=== PATIENT | female | born 1960 | race Caucasian/White ===

== ENCOUNTER 2018-12-19 07:10 | Day surgery (SDC) | payer OTHER ==
[2018-12-17 17:30] VITALS: BMI 25.7
[2018-12-19] MEDS ORDERED: ceFAZolin SODIUM 1 GM VIAL ONE ×2 (07:31→09:49)
[2018-12-19] MEDS ORDERED: PHENAZOPYRIDINE HCL 100 MG TABLET (FP) ONE (07:31)
[2018-12-19] MEDS: PHENAZOPYRIDINE HCL 100 MG TABLET (FP) PO ONE ×2 (07:45→19:15)
[2018-12-19] MEDS ORDERED: CEFAZOLIN 1 GM/D5W 1 GM/50 ML BAG IVPB ONE (08:12)
[2018-12-19] MEDS ORDERED: BUPIVACAINE HCL/PF 0.25% (2.5MG/ML) 10 ML VIAL ONE (08:16)
[2018-12-19] MEDS ORDERED: fentaNYL CITRATE 250 MCG/5 ML VIAL ONE ×2 (08:35→10:45)
[2018-12-19] MEDS ORDERED: LIDOCAINE HCL/PF 2% SDV 5ML VIAL ONE (08:35)
[2018-12-19] MEDS ORDERED: ROCURONIUM BROMIDE 50 MG/5 ML VIAL ONE ×2 (08:35→10:34)
[2018-12-19] MEDS ORDERED: PROPOFOL 20 ML ONE (08:35)
[2018-12-19] MEDS ORDERED: MIDAZOLAM HCL 2 MG/2 ML SINGLE DOSE VIAL ONE ×2 (08:35)
--- NOTE | 2018-12-19 08:47 | HP ---
History & Physical Update - Plan Plan: No Change (Plan to proceed with Robotic supracervical hysterectomy, bilateral salpingectomy, sacrocolpopexy, anterior-posterior colporrhaphy, perineorrhaphy, cystoscopy, possible open.)
[2018-12-19] MEDS ORDERED: HEPARIN NA (PORCINE) 5,000 UNITS/ML 1ML VIAL SQ ONE (09:00)
[2018-12-19] MEDS ORDERED: ceFAZolin SODIUM 1 GM VIAL IVPB ONE (09:41)
[2018-12-19] MEDS ORDERED: DEXAMETHASONE SOD PHOSPHATE 4 MG/1 ML VIAL ONE (09:54)
[2018-12-19] MEDS ORDERED: BUPIVACAINE HCL/PF 0.25% (2.5MG/ML) 10 ML VIAL IJ ONE ×2 (10:28→13:02)
[2018-12-19] MEDS ORDERED: LIDOCAINE 1%/EPI 1:100000 (50 ML MULTI DOSE VIAL) NR ONE ×2 (10:29→13:02)
[2018-12-19] MEDS ORDERED: GLYCOPYRROLATE 0.2 MG/1 ML VIAL ONE (12:58)
[2018-12-19] MEDS ORDERED: NEOSTIGMINE METHYLSULFATE 0.5 MG/ML - 10 ML MDV ONE (12:58)
[2018-12-19] MEDS ORDERED: ONDANSETRON 4 MG/2 ML VIAL IVPUSH PRN (13:29)
[2018-12-19] MEDS ORDERED: PROMETHAZINE HCL 25 MG/1 ML VIAL IVPUSH PRN (13:29)
[2018-12-19] MEDS ORDERED: diphenhydrAMINE HCL 25 MG CAPSULE (FP) PO PRN (13:58)
[2018-12-19] MEDS ORDERED: MORPHINE SULFATE 2 MG/ML VIAL IVPUSH PRN (13:58)
[2018-12-19] MEDS ORDERED: PROCHLORPERAZINE INJECTION 10 MG/2 ML VIAL IVPB PRN (13:58)
[2018-12-19] MEDS ORDERED: ACETAMINOPHEN 1000 MG/100 ML VIAL (NON FORMULARY) IVPB ONE (14:15)
[2018-12-19] MEDS ORDERED: ACETAMINOPHEN INJECTION 100 ML IVPB ONE (14:22)
--- NOTE | 2018-12-19 14:51 | OP ---
Operative Note - Note: Operative Date: 12/19/18 Pre-Operative Diagnosis: Retrovaginal prolapse Operation: Robotic supracervical hysterectomy, bilateral salpingectomy, sacrocolpopexy, anterior-posterior colporrhaphy, perineorrhaphy, cystoscopy Post-Operative Diagnosis: Same as Pre-op Surgeon: Zenia Lyons Aircraft Motor Mechanic: Wilfredo Hall Anesthesiologist/VISUAL ASSOCIATE: Rolando Roa Anesthesia: General Operative Report Dictated: Yes
[2018-12-19] MEDS: HYDROmorphone HCL CARPU-JECT 2 MG/1 ML DISP.SYRIN IVPUSH PRN ×2 (14:55→15:05)
[2018-12-19] MEDS ORDERED: HYDROmorphone HCl 2 MG/ML VIAL ONE (14:56)
[2018-12-19] MEDS: LACTATED RINGERS SOLUTION 1,000 ML IV SCH ×2 (15:14→21:42)
[2018-12-19] MEDS ORDERED: HYDROmorphone HCl 2 MG/ML VIAL IVPUSH PRN (15:34)
[2018-12-19] MEDS: ACETAMINOPHEN 325 MG TABLET (FP) PO SCH (17:44)
[2018-12-19] MEDS: IBUPROFEN 800 MG/8 ML IJ IVPB PRN (18:05)
[2018-12-19] MEDS ORDERED: SERTRALINE HCL 50 MG TABLET (FP) PO SCH (22:00)
[2018-12-19] MEDS ORDERED: ABACAVIR/DOLUTEGRAVIR/LAMIVUDI (TRIUMEQ) TABLET -NF PO SCH (22:00)
[2018-12-20] MEDS: ACETAMINOPHEN 325 MG TABLET (FP) PO SCH ×3 (00:11→14:10)
[2018-12-20] MEDS: IBUPROFEN 800 MG/8 ML IJ IVPB PRN (02:11)
[2018-12-20 06:33] VITALS: BP 129/71; PULSE 77; TEMP 98.6
--- NOTE | 2018-12-20 07:38 | PN ---
Progress Note (short form) - Note Progress Note: 58yo F POD 1, Pt seen and examined at bedside. Pt state that she has mild abd pain, but is controlled. Pt just had krueger removed and has not voided yet. Pt states tolerating PO, but doesn't have much of an appetite. Denie fever, chills , n/v. Last Vital Signs Temp Pulse Resp BP Pulse Ox 98.6 F 77 18 129/71 98 12/20/18 06:00 12/20/18 06:00 12/20/18 06:00 12/20/18 06:00 12/19/18 17:39 PE: Gen: A&O X3 Resp: breathing comfortably Abd: soft, nondistended, mild diffuse tenderness, incisions clean no erythema or discharge. Ext: no edema Problem List - Problems (1) Status post hysterectomy Assessment/Plan: Plan -pt appears to be doing well, will plan for discharge later today, provided pt passes trial of void -pain controll -emphasize OOB/ambulate -regular diet Case discussed with Dr. Lyons who agrees with plan Code(s): Z90.710 - ACQUIRED ABSENCE OF BOTH CERVIX AND UTERUS
[2018-12-20] MEDS ORDERED: CHOLECALCIFEROL (VITAMIN D3) 1,000 UNIT TABLET (FP) PO SCH (10:00)
[2018-12-20] MEDS ORDERED: LORATADINE 10 MG TABLET PO SCH (10:00)
[2018-12-20] MEDS ORDERED: oxyCODONE HCL 5 MG TABLET PO PRN (10:26)
--- NOTE | 2018-12-20 10:50 | OP ---
DATE OF OPERATION: 12/19/2018 PREOPERATIVE DIAGNOSIS: Incomplete Uterovaginal prolapse. POSTOPERATIVE DIAGNOSIS: Incomplete Uterovaginal prolapse. ATTENDING SURGEON: Zenia Lyons MD ASSISTING SURGEON: Lauren Del Rosario MD, SALOME Stevens INTRAVENOUS FLUIDS: 1500 mL. ESTIMATED BLOOD LOSS: 100 mL. URINE OUTPUT: 175 mL. PROCEDURE: Robotic supracervical hysterectomy, bilateral salpingectomy, sacrocolpopexy, posterior coloperineorrhaphy, and cystoscopy. SPECIMENS: Uterus and bilateral fallopian tubes. DRAINS: Preciado catheter. COMPLICATIONS: None. INDICATIONS: Patient is a 58-year-old woman with bothersome stage 2 pelvic organ prolapse, who had tried conservative therapy and was now interested in surgical intervention. Risks, benefits, alternative of the various surgical options were reviewed with the patient, informed consent was obtained, and she now presents for surgery. OPERATION: Patient was brought to the operating room and placed supine on the operating room table. Bilateral sequential compression devices were placed on the lower extremities. The patient was administered 5000 subcutaneous heparin as well as 2 g of cefoxitin IV. General anesthesia was induced, and the endotracheal tube was placed and secured. The patient was placed in the dorsal lithotomy position, the arms were tucked and padded and secured in a beanbag with all pressure points adequately padded. The anterior abdomen and external genitalia were prepped and draped in the usual sterile fashion. A time-out was performed. A Preciado catheter was inserted sterilely on the field. Due to the prior history of an umbilical hernia repair, the Veress needle was placed in [place] point 2 cm caudad to the subcostal margin at the midclavicular line. After 3 clicks were heard, the abdomen was insufflated with pressures less than 10 mmHg. Once the abdomen was adequately insufflated to a pressure of 15, a 5-mm trocar was placed using a Visiport. The abdomen was inspected and there were no signs of intraabdominal injury. We noticed that there were some fatty adhesions at the area of the umbilicus, but otherwise no additional adhesions. A supraumbilical incision was made and a robotic trocar was placed under visual guidance. We placed 2 additional robotic trocars to the left of the camera trocar and 1 robotic trocar and an assistant therapy aide port to the right of the camera port with at least 8 cm between trocars. The patient was placed in steep Trendelenburg, and the Xi robot was docked. We then proceeded with the case. We started with the hysterectomy. The uterus was noted to be small as expected in this postmenopausal woman. The robotic tenaculum was used to grasp the uterus to reflect it laterally. The fallopian tube was identified and dissected off of the small atrophic normal-appearing ovary. The attachments were divided to the level of the uterus. The round ligament was then divided as well as the mesosalpinx. The broad ligament was into an anterior and posterior flap, and the broad ligament was divided laterally along the edge of the uterus. An anterior flap was further developed to dissect the bladder off of the uterus , at which point the uterine vessels were identified and were cauterized using the bipolar [place]. The same was then performed on the contralateral side. The contralateral ovary was also small and atrophic and normal-appearing. After bilateral uterine vessels were cauterized, the uterus was then transected above the level of the cervix, and the cervical os was also cauterized. The specimen was then placed on the side. The cervix was grasped with a tenaculum, and the anterior flap was further developed following along the anterior vaginal wall to above the level of the trigone. A posterior flap was also developed extending down midway to the posterior vaginal wall. Good hemostasis was noted. The 3rd arm was then used to retract the sigmoid laterally, and the sacral promontory was identified. The peritoneum was divided revealing the anterior longitudinal ligament. The right ureter could clearly be visualized peristalsing laterally away from the area of dissection. The overlying peritoneum was then opened down to the level of the uterosacral ligament to be used later to retroperitonealize the mesh. At this point, we introduced the mesh and attached the mesh with interrupted 2-0 PDS stitches on the cervix, anterior vaginal wall, and posterior vaginal wall. There were at least 6 interrupted stitches placed anteriorly and posteriorly. Once the mesh was adequately fixed, it was then brought up cephalad and attached to the sacral promontory using 3 interrupted 0 Prolene stitches. Good apical suspension was noted. At this point, the peritoneum was used to cover the mesh and retroperitonealize the mesh completely. The pelvis was irrigated, and good hemostasis was noted. At this point, the robot was undocked, the patient was taken out of Trendelenburg, the camera port was removed, and a 10-mm EndoCatch bag was placed through the camera port, and the specimen placed in EndoCatch bag. All the ports were removed under visualization, and no bleeding was noted. The umbilical incision was expanded, and the specimen was removed intact in the bag. We then closed the umbilical port fascia with a running 0 Vicryl stitch. Once the fascia was closed, an interrupted stitch was placed in Scarpas fascia to close the space, and the skin was closed using 4-0 Monocryl. Marcaine was injected into all of the laparoscopic port incision sites. We then proceeded with the vaginal portion of the case. The posterior vaginal wall was infiltrated with lidocaine with epinephrine. A jose de jesus-shaped incision was made extending upward in the midline. The vaginal skin was excised, and then, interrupted 0 Vicryl plication stitches were placed to reduce the rectocele and to reapproximate the perineal body. Once this was reapproximated, the incision was irrigated, and the vaginal skin was closed using 3-0 Vicryl running locked stitch. Good hemostasis was noted, and the patient subsequently underwent cystoscopy, which revealed no mucosal lesions. Bilateral brisk efflux was noted. The patient was then taken out of dorsal lithotomy and awoken from anesthesia and taken to the recovery room in good condition. Dr. Lyons was present for the entire case. MD RAY THURMAN/[id number] MTDD
--- NOTE | 2018-12-20 14:43 | PN ---
Progress Note (short form) - Note Progress Note: Post op day#1.S/P Robotic hystrectomy under GA uneventful.Patient stable.No any anesthesia related problem.Patient DC from the anesthesia care.
--- NOTE | 2018-12-24 18:11 | PATH ---
Surgical Pathology Report Patient Name: HUY LONG [facility]. Rec. #: [id number] /Age/Gender: 1960 (Age: 58) / F Account: [id number] Location: AMBULATORY SURG Taken: 12/19/2018 Received: 12/20/2018 Reported: 12/24/2018 Physicians: Zenia Lyons M.D. Specimen(s) Received UTERUS AND BILATERAL TUBES Clinical History Uterovaginal prolapse Final Diagnosis UTERUS AND BILATERAL TUBES, SUPRACERVICAL HYSTERECTOMY AND BILATERAL SALPINGECTOMY: WEAKLY PROLIFERATIVE/INACTIVE ENDOMETRIUM. RIGHT AND LEFT FALLOPIAN TUBES WITH PARATUBAL CYSTS. Electronically Signed Garcia Green M.D. Gross Description Received in formalin labeled "uterus and bilateral tubes," is a 22 g supracervically amputated uterus with bilateral attached fallopian tubes. The specimen measures 4.3 cm from left to right, 3.5 cm from superior to inferior and 2.2 cm from anterior to posterior. The serosa is quigley-sanford and smooth. The endometrial cavity measures 2.3 cm in length and 0.9 cm from cornu to cornu. The endometrium is quigley and averages 0.1 cm in thickness. The myometrium is quigley carlson and measures up to 1.1 cm in thickness. No intramural nodules are identified. The left fimbriated fallopian tube measures 6 cm in length. The outer surface is quigley carlson and smooth with a 0.8 cm in greatest dimension paratubal cyst attached. Sectioning reveals an unremarkable lumen. The right fimbriated fallopian tube measures 5.4 cm in length. The outer surface is quigley-sanford and smooth. Sectioning reveals an unremarkable lumen. Lung Gun Operator sections are submitted in 9 cassettes as follows: 1-cervical stump margin of resection; 3-3-slbsqfir endomyometrium; 5-0-ihvohetdv endomyometrium; 6-left fallopian tube fimbria; 7-cross sections of left fallopian tube; 8-right fallopian tube fimbria; 9-cross sections of right fallopian tube. 12/23/2018 [facility]/23/2018
--- NOTE | 2018-12-26 15:49 | SURG ---
Surgery Conservation Agent Note Conservation Agent: Wilfredo Hall PA-C Date of Service: 12/19/18 Diagnosis: Incomplete Uterovaginal prolapse Procedure: Robotic supracervical hysterectomy, bilateral salpingectomy, sacrocolpopexy, posterior coloperineorrhaphy, and cystoscopy I was present for the entirety of the operative procedure. For further detail, please refer to operative report. Visit type - Case Type Case Type: Scheduled - Emergency Emergency Visit: No - New patient This patient is new to me today: Yes Date on this admission: 12/26/18 - Critical Care Critical Care patient: No
== END 2018-12-20 15:00 | disposition home or self-care (01) ==
LOC: JASUSAT 07:10 → EDSTATUS 08:00 → J3W 15:49 → JASUSAT 12-20 15:00
PROVIDERS: ATTEND Urology Female Pelvic Medicine and Reconstructive Surgery
PROC: 0UT74ZZ Resection of Bilateral Fallopian Tubes, Percutaneous Endoscopic Approach (ICD-10-PCS; 2018-12-19)
PROC: 8E0W4CZ Robotic Assisted Procedure of Trunk Region, Percutaneous Endoscopic Approach (ICD-10-PCS; 2018-12-19)
PROC: 0UT94ZL Resection of Uterus, Supracervical, Percutaneous Endoscopic Approach (ICD-10-PCS; principal; 2018-12-19 09:00)
DX: N81.2 Incomplete uterovaginal prolapse (principal)
CPT/HCPCS: 57260; 57425; 58542; S2900; 86850; 86900; 86901; 88305-TC; 88307-TC; 94760; J0131